=== PATIENT | male | born 1930 | race Caucasian/White ===

== ENCOUNTER 2018-12-17 14:00 | Day surgery (SDC) | payer MEDICARE, BC ==
[~2018-12-17] VITALS: Ht 177.8 cm; Wt 85.9 kg
[2018-12-17] VITALS (10 sets, daily range): BP systolic 102–166; BP diastolic 55–72; PULSE 67–98; TEMP 97.9–98.6
[~2018-12-17 14:00] MED LIST: ADVAIR 250/28 DISKU1 IH; ATOXIMETIN-B1 CAP PO; FLAGYL500 MG PO; FOLIC ACID 40400 MCG PO; IRON325 M1 PO; LEVAQUIN 5500 MG/TA1 PO; OMEPRAZOLE40 MG PO; VITAMIN C PO; VITAMIN D31000 IU PO
[2018-12-17] MEDS ORDERED: CARTIA XT120 MG PO (14:23)
[2018-12-17] MEDS ORDERED: VITAMIN C500 MG PO (14:23)
[2018-12-17] MEDS ORDERED: ADVIL200 MG PO (14:24)
[2018-12-17] MEDS ORDERED: B COMPLEX & B121 TAB PO (14:26)
[2018-12-17] MEDS ORDERED: SYNTHROID0.088 MG/T PO (14:26)
[2018-12-17] MEDS ORDERED: ATIVAN 1MG T1 MG/TAB PO (14:27)
[2018-12-17] MEDS ORDERED: PRAVACHOL10 MG PO (14:28)
[2018-12-17] MEDS ORDERED: SEROQUEL 2525 MG/TAB PO (14:28)
--- NOTE | 2018-12-17 18:00 | NUR ---
Patient up from OR. Alert and partially oriented. Denies pain at this time. Guerrero to dependent drainage with small amount of krystal urine in tubing. Post op VSS. Spouse at bedside. Denies further needs at this time.
--- NOTE | 2018-12-17 20:00 | NUR ---
REPORT RECEIVED. 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 ASSESSMENT COMPLETE. VS STABLE. INDWELLING CLARK TO DEPENDENT DRAINAGE WITH DARK RED FLUID. TOLERATING PO-NOT DRINKING A LOT OF FLUID. DENIES NEED FOR PAIN MEDICATIONS. ENCOURAGED TO CALL FOR NEEDS. VERBALIZES UNDERSTANDING. WILL MONITOR.
[2018-12-18 03:42] VITALS: BP 116/55; PULSE 60; TEMP 97.9
[2018-12-18 08:19] VITALS: BP 114/45; PULSE 64; TEMP 97.9
--- NOTE | 2018-12-18 10:11 | NUR ---
Patient feeling nervous this am, worried about taking his medications for this. Medication given per orders. He denies pain. Patient Guerrero Dc per orders. He was able to void blood tinged urine. He is very concerned about his bowels & constipation-medications per orders, tried to educate patient on it taking time for medications to work, he is insistant he needs more medication. Iv to Int. He did well with breakfast. Will monitor
[2018-12-18 11:43] VITALS: BP 125/54; PULSE 73; TEMP 97.8
--- NOTE | 2018-12-18 14:54 | NUR ---
TISHA met with the patient and patient's , Jessie, to discuss discharge plan. The patient lives in [place] with his . Jessie reports that the patient is independent with ADLs and does not use any DME. The patient's PCP is Dr. Pola Miles and he receives his medications at [facility]. His reports no difficulties obtaining his meds. The patient's advanced directives are in EMR. The patient plans to return home with his upon discharge. No additional needs at this time.
--- NOTE | 2018-12-18 15:11 | NUR ---
Patient continues to have concerns about his bowels. Reports to . No more medications at this time. Stressed with patient the importance of time. Encouraged water intake. Patient has has a small BM. Will monitor.
[2018-12-18 17:17] VITALS: BP 131/59; PULSE 77; TEMP 97.7
--- NOTE | 2018-12-18 17:35 | NUR ---
Patient bowels working adequately. He tolerated dinner. Patient mood improved now that his bowels are working, I stressed that he will discharge tmrw now that bowels are working & he is voiding adequatly.
[2018-12-18 19:18] VITALS: BP 122/58; PULSE 68; TEMP 98
--- NOTE | 2018-12-18 20:00 | NUR ---
REPORT RECEIVED. ASSUMED CARE. ASSESSMENT COMPLETE. VS STABLE. RESTING IN BED WATCHING TV. STATES HE HAS HAD 7 BOWEL MOVEMENTS FOR DAY SHIFT. DENIES PAIN-STATING NO PAIN SINCE BMS. BOWEL SOUNDS HYPERACTIVE. REFUSING DULCOLAX SUPPOSITORIES BUT STATES HE WILL TAKE MOM. ENCOURAGED TO CALL FOR QUESTIONS OR CONCERNS. VERBALIZES UNDERSTANDING. CALL LIGHT WITHIN REACH, BED IN LOW POSITION, WHEELS LOCKED. WILL MONITOR.
--- NOTE | 2018-12-18 21:00 | NUR ---
C/O PAIN TO IV SITE. STATES HE WENT TO BATHROOM TO HAVE A BOWEL MOVEMENT AND KNOCKED IT ON THE ARM RAIL. NOTED TO BE LEAKING FLUID AT SITE-RED-NO EDEMA. DCd AT THIS TIME. CATH INTACT. TOLERATED WELL.
[2018-12-18 23:16] VITALS: BP 126/66; PULSE 78; TEMP 97.6
[2018-12-19 03:12] VITALS: BP 143/63; PULSE 79; TEMP 98
--- NOTE | 2018-12-19 04:07 | NUR ---
RESTED MOST OF THIS SHIFT-STATES BETTER THAN THE NIGHT BEFORE. DENIES PAIN NEEDING INTERVENTION-STATES ITS /10-INTERMITTENT ABDOMNINAL PAIN-DESCRIBED GAS. VOIDING WITHOUT DIFFICULTY-URINE IS A NARA COLOR. VS HAVE REMAINED STABLE-ASSESSMENT UNCHANGED. DENIES NEEDS. WILL MONITOR.
[2018-12-19 07:20] VITALS: BP 135/74; PULSE 66; TEMP 97.8
--- NOTE | 2018-12-19 07:56 | NUR ---
NSG ASSESSMENT COMPLETED. PT DENIES PAIN. REQUESTED ATIVAN - GIVEN. PT TOOK MEDS WELL AND MOM WAS PLACED INTO ORANGE JUICE PT REQUEST. PT READY TO GO HOME.
[2018-12-19 11:24] VITALS: BP 149/75; PULSE 73; TEMP 98.1
--- NOTE | 2018-12-19 11:30 | NUR ---
PT/ GIVEN DC INSTRUCTIONS AND WE WENT OVER THEM. PT WAS VERY ANXIOUS TO GET GOING. SCRIPTS GIVEN TO PT. ALL QUESTIONS ANSWERED. NO INT TO DC. PT TAKEN DOWN IN WHEELCHAIR TO POV.
== END 2018-12-19 11:30 | disposition home or self-care (01) ==
LOC: SDCO 14:00 → SURG 18:21 → SDCO 12-19 11:30
DX: N20.1 Calculus of ureter (principal); N40.1 Benign prostatic hyperplasia with lower urinary tract symptoms; R35.0 Frequency of micturition; K59.00 Constipation, unspecified; R35.1 Nocturia; Z96.652 Presence of left artificial knee joint; Z90.49 Acquired absence of other specified parts of digestive tract; Z90.79 Acquired absence of other genital organ(s); J44.9 Chronic obstructive pulmonary disease, unspecified; Z95.0 Presence of cardiac pacemaker; K21.9 Gastro-esophageal reflux disease without esophagitis; Z86.61 Personal history of infections of the central nervous system
CPT/HCPCS: OP; C1769; C1894; C2617; J0690; J1100; J2405; J2704; J3010; J7120; Q9967

== ENCOUNTER 2019-01-05 12:40 | Day surgery (SDC) | payer MEDICARE, BC ==
[~2019-01-05] VITALS: Ht 177.8 cm; Wt 85.5 kg
[~2019-01-05 12:40] MED LIST changes: -ADVAIR 250/28 DISKU1 IH; +ADVIL200 MG PO; +ATIVAN 1MG T1 MG/TAB PO; +B COMPLEX & B121 TAB PO; +CARTIA XT120 MG PO; +PRAVACHOL10 MG PO; +RT ADVAIR 228 DISKUS IH; +SEROQUEL 2525 MG/TAB PO; +SYNTHROID0.088 MG/T PO; +VITAMIN C500 MG PO
--- NOTE | 2019-01-05 13:45 | NUR ---
Dr Morrison into see patient at this time.
--- NOTE | 2019-01-05 14:00 | NUR ---
Patient to radiology at this time for CT Abdomen/Pelvis.
[2019-01-05] MEDS ORDERED: NORCO 325 MG-51 TAB PO (14:02)
[2019-01-05] MEDS ORDERED: ULTRAM 50MG TAB50 MG PO (14:03)
[2019-01-05 14:08] LABS: HEMATOCRIT 40.8 % (42.0-52.0); HEMOGLOBIN 13.3 g/dl (13.5-18.0); MEAN CELL VOLUME 91 fl (80.0-100.0); MEAN CORPUSCULAR HEMOGLOBIN 30 pg (27.0-31.0); MEAN CORPUSCULAR HGB CONC 33 g/dl (33.0-37.0); MEAN PLATELET VOLUME 9.2 fl (7.4-10.4); PLATELET COUNT 357 K/mm3 (130-400); RED BLOOD COUNT 4.49 M/mm3 (4.20-5.60); REDCELL DISTRIBUTION WIDTH-CV 13.9 % (11.5-14.5)
[2019-01-05 14:36] LABS: CALCIUM 8.9 mg/dL (8.4-10.2); CREATININE, serum 0.93 (0.66-1.25); POTASSIUM 4.3 mmol/L (3.4-5.0)
--- NOTE | 2019-01-05 15:00 | NUR ---
Dr Morrison into see patient at this time to go over CT and Lab results.
[2019-01-05] MEDS ORDERED: FLOMAX 0.40.4 MG/CAP PO (15:03)
--- NOTE | 2019-01-05 15:40 | NUR ---
Dismissal instructions gone over with patient and patient's spouse. Both verbalize understanding and all questions answered.
--- NOTE | 2019-01-05 15:50 | NUR ---
Patient dismissed via wheelchair to private vehicle at patient enterance. Patient and spouse leave thanking staff for services.
[2019-01-05 16:00] VITALS: BP 150/70; PULSE 70; TEMP 97.5
== END 2019-01-05 15:50 | disposition home or self-care (01) ==
LOC: SDCO 12:40
PROVIDERS: Urology
DX: R10.9 Unspecified abdominal pain (principal); Z87.442 Personal history of urinary calculi; N40.1 Benign prostatic hyperplasia with lower urinary tract symptoms; R35.1 Nocturia; Z90.79 Acquired absence of other genital organ(s); Z80.9 Family history of malignant neoplasm, unspecified; Z96.642 Presence of left artificial hip joint; Z90.49 Acquired absence of other specified parts of digestive tract; Z95.0 Presence of cardiac pacemaker; J44.9 Chronic obstructive pulmonary disease, unspecified; K21.9 Gastro-esophageal reflux disease without esophagitis; G93.40 Encephalopathy, unspecified; Z53.8 Procedure and treatment not carried out for other reasons
CPT/HCPCS: J0690; J1100; J2405; J2704; J3010; J7030